=== PATIENT | male | born 1995 | race Caucasian/White ===

== ENCOUNTER 2021-08-16 20:49 | Emergency (ER) | payer OTHER ==
[2021-08-16 21:20] LABS: BASOPHILS # (AUTO) 0.1 10^3/uL (0.0-0.1); BASOPHILS % (AUTO) 0.4 %; EOSINOPHILS # (AUTO) 0.2 10^3/uL (0.0-0.7); EOSINOPHILS % (AUTO) 1.6 %; HCT - HEMATOCRIT 42.9 % (42.0-52.0); HGB - HEMOGLOBIN 14.4 g/dL (14.0-18.0); LYMPHOCYTES # (AUTO) 2.5 10^3/uL (1.5-3.5); MEAN CORPUSCULAR HEMOGLOBIN 28.7 pg (27.0-31.0); MEAN CORPUSCULAR HGB CONC 33.6 g/dL (32.0-36.0); MEAN CORPUSCULAR VOLUME 85.5 fL (80.0-94.0); MEAN PLATELET VOLUME 9.8 fL (7.4-11.4); NEUTROPHILS # (AUTO) 10.8 10^3/uL (1.5-6.6); NEUTROPHILS % (AUTO) 73.7 %; PLT - PLATELET COUNT 233 10^3/uL (130-450); RED BLOOD COUNT 5.02 10^6/uL (4.70-6.10); RED CELL DISTRIBUTION WIDTH 12.5 % (12.0-15.0); WHITE BLOOD COUNT 14.6 x10^3/uL (4.8-10.8)
[2021-08-16 21:31] LABS: ALBUMIN 4.7 g/dL (3.2-5.5); ALBUMIN/GLOBULIN RATIO 1.3 (1.0-2.2); BILIRUBIN,TOTAL 0.8 mg/dL (0.2-1.0); CALCIUM 9.1 mg/dL (8.5-10.3); CREATININE 1.1 mg/dL (0.6-1.2); POTASSIUM 4.1 mmol/L (3.5-5.0); TOTAL PROTEIN 8.4 g/dL (6.7-8.2)
--- NOTE | 2021-08-16 21:37 | ED Physician Documentation ---
PD HPI ABD PAIN - Stated complaint Stated Complaint: MALE - Chief complaint Chief Complaint: Abd Pain - History obtained from History obtained from: Patient - Additional information Additional information: Previously healthy 26-year-old gentleman who is active duty in the [place] developed low back pain left greater than right while at rest after doing PT today. PT was not more stressful than usual. Subsequently he developed burning urination and orange urine. No fevers or chills. He has some suprapubic pain as well. He has never had a kidney stone or abdominal surgeries. He declines pain medication on initial evaluation. Review of Systems Ten Systems: 10 systems reviewed and negative Constitutional: reports: Reviewed and negative Eyes: reports: Reviewed and negative Ears: reports: Reviewed and negative Nose: reports: Reviewed and negative Throat: reports: Reviewed and negative PD PAST MEDICAL HISTORY - Present Medications Home Medications: Ambulatory Orders Medication Instructions Recorded Confirmed Cefdinir 300 mg PO BID #14 cap 08/16/21 - Allergies Allergies/Adverse Reactions: Allergies Allergy/AdvReac Type Severity Reaction Status Date / Time No Known Drug Allergies Allergy Verified 08/16/21 21:01 PD ED PE NORMAL - Vitals Vital signs reviewed: Yes - General General: Alert and oriented X 3, No acute distress - Cardiac Cardiac: RRR, No murmur - Respiratory Respiratory: No respiratory distress, Clear bilaterally - Abdomen Abdomen: Other (Mild tenderness in the suprapubic area and right lower quadrant. Mild left flank tenderness without right pain tenderness. No surgical signs.) - Back Back: No spinal TTP - Neuro Neuro: Alert and oriented X 3, Normal speech Results - Vitals Vitals: Vital Signs - 24 hr 08/16/21 08/16/21 20:57 23:43 Temperature 37 C Heart Rate 99 83 Respiratory 18 16 Rate Blood Pressure 119/77 112/66 O2 Saturation 98 97 Oxygen O2 Source Room air - Labs Labs: Microbiology 08/16/21 21:30 Urine Culture - Preliminary Urine,Clean Catch CULTURE IN PROGRESS. RESULTS TO FOLLOW. Laboratory Tests 08/16/21 08/16/21 08/16/21 21:14 21:14 21:30 WBC 14.6 H RBC 5.02 Hgb 14.4 Hct 42.9 MCV 85.5 MCH 28.7 MCHC 33.6 RDW 12.5 Plt Count 233 MPV 9.8 Neut # (Auto) 10.8 H Lymph # (Auto) 2.5 [place] # (Auto) 1.0 Eos # (Auto) 0.2 Baso # (Auto) 0.1 Absolute Nucleated RBC 0.00 Nucleated RBC % 0.0 Sodium 138 Potassium 4.1 Chloride 101 Carbon Dioxide 27 Anion Gap 10.0 BUN 10 Creatinine 1.1 Estimated GFR (MDRD) 82 L Glucose 103 H Calcium 9.1 Total Bilirubin 0.8 AST 20 ALT 20 Alkaline Phosphatase 73 Total Protein 8.4 H Albumin 4.7 Globulin 3.7 Albumin/Globulin Ratio 1.3 Urine Color YELLOW Urine Clarity CLOUDY Urine pH 6.0 Ur Specific [place] 1.025 Urine Protein 100 H Urine Glucose (UA) NEGATIVE Urine Ketones NEGATIVE Urine Occult Blood LARGE H Urine Nitrite NEGATIVE Urine Bilirubin NEGATIVE Urine Urobilinogen 0.2 (NORMAL) Ur Leukocyte Esterase LARGE H Urine RBC 11-25 H Urine WBC >25 H Ur Squamous Epith Cells RARE Squamous Urine Bacteria Moderate H Ur Microscopic Review INDICATED Urine Culture Comments INDICATED Departure - Departure Disposition: 01 Home, Self Care Clinical Impression: Cystitis Condition: Stable Instructions: ED UTI Cystitis Male Prescriptions: Cefdinir 300 mg PO BID #14 cap Comments: You were found to have a bladder infection. Your CT scan did not show anything else that was abnormal other than inflammation in the bladder. We have started you on an antibiotic tonight and I will send a prescription for an antibiotic that you should start in the morning to [facility]. Please finish the course of the antibiotic. If you have any worsening symptoms such as increased pain, fever, pain elsewhere please return to the emergency department.Otherwise [place] Discharge Date/Time: 08/17/21 00:11
[2021-08-16 21:44] LABS: BILIRUBIN,URINE NEGATIVE (NEGATIVE); GLUCOSE, URINE (UA) NEGATIVE (NEGATIVE); KETONES,URINE (UA) NEGATIVE (NEGATIVE); LEUKOCYTE ESTERASE, URINE LARGE (NEGATIVE); NITRITE,URINE NEGATIVE (NEGATIVE); OCCULT BLOOD,URINE LARGE (NEGATIVE); PROTEIN,URINE 100 mg/dL (NEGATIVE); UROBILINOGEN,URINE 0.2 (NORMAL) E.U./dL (NORMAL)
[2021-08-16 21:49] LABS: CLARITY,URINE CLOUDY (CLEAR)
[2021-08-16 22:01] LABS: SQUAMOUS EPITHELIAL CELL,UR RARE Squamous (<= Few); WBC,URINE >25 /HPF (0-3)
[2021-08-16 22:02] LABS: BACTERIA,URINE Moderate /HPF (None Seen)
--- NOTE | 2021-08-16 23:20 | CT Report ---
PROCEDURE: Abdomen/Pelvis WO INDICATIONS: L flank pain TECHNIQUE: Noncontrast 5 mm thick sections acquired from the diaphragms to the symphysis. 5 mm coronal and sagi ttal reformats were then performed. For radiation dose reduction, the following was used: automated exposure control, adjustment of mA and/or kV according to patient size. COMPARISON: None. FINDINGS: Image quality: Evaluation limited in the absence of intravenous contrast.. Lung bases: There is mild dependant atelectasis. Heart: Heart is normal in size. URINARY: Right Kidney and Ureter: No stones or hydronephrosis. No hydroureter. Left Kidney and Ureter: No stones or hydronephrosis. No hydroureter. Bladder:The urinary bladder is partially distended. There is mild perivesicular fat stranding. No st ones. ABDOMEN: Liver: Noncontrast evaluation of the liver demonstrates no discrete mass. Gallbladder: Within normal limits without calcified gallstones. Biliary ducts: No biliary ductal dilatation. Pancreas: Unremarkable. Spleen: Normal in size. Adrenal Glands: No adrenal nodules. Stomach and Bowel: Stomach, small bowel loops, and colon are normal in caliber and wall thickness. N o evidence of appendicitis. There is colonic diverticulosis without acute diverticulitis. Peritoneum: No abnormal intraperitoneal fluid. No free air. Ventral Wall: No hernia. Abdominal Nodes: No retroperitoneal or mesenteric adenopathy by size criteria. Vessels: Aorta and inferior vena cava are normal in size. PELVIS: Pelvic Organs: Unremarkable. Pelvic Nodes: No enlarged lymph nodes. Miscellaneous: No inguinal hernias identified. Bones: Visualized osseous structures demonstrate no suspicious focal lesions. IMPRESSION: 1. No evidence of nephrolithiasis or obstructive uropathy. 2. Mild fat stranding along the bladder suggestive of a cystitis. Recommend correlation with urinalys is. 3. Colonic diverticulosis without acute diverticulitis. Reviewed by: Aditya Koehler MD on 08/16/2021 11:19 PM PDT Approved by: Aditya Koehler MD on 08/16/2021 11:19 PM PDT Station ID: [id number]
[2021-08-16] MEDS ORDERED: LIDOCAINE 1% 2 ML VIAL MC ONE (23:35)
[2021-08-16] MEDS ORDERED: cefTRIAXone 1 GM VIAL IM STA (23:35)
--- NOTE | 2021-08-16 23:41 | ED Physician Documentation ---
ED Addendum - Addendum Addendum: Patient signed out to me by Dr. Kwan to follow-up on CT scan results. CT scan Findings of cystitis.Urine analysis also with findings of infection. Will give patient dose of Rocephin IM tonight and prescription for p.o. antibiotics. I did review these findings with the patient. He denies concern for sexually transmitted infections and denies penile discharge or testicular pain.He is nontoxic in appearance, does not appear septic. Departure - Departure Disposition: 01 Home, Self Care Clinical Impression: Cystitis Condition: Stable Instructions: ED UTI Cystitis Male Prescriptions: Cefdinir 300 mg PO BID #14 cap Comments: You were found to have a bladder infection. Your CT scan did not show anything else that was abnormal other than inflammation in the bladder. We have started you on an antibiotic tonight and I will send a prescription for an antibiotic that you should start in the morning to [facility] in [place]. Please finish the course of the antibiotic. If you have any worsening symptoms such as increased pain, fever, pain elsewhere please return to the emergency department.Otherwise [place] Discharge Date/Time: 08/17/21 00:11
[2021-08-16 23:43] VITALS: BP 112/66
[2021-08-17 23:56] LABS: CHLAMYDIA TRACHOMATIS DNA NEGATIVE (NEGATIVE); NEISSERIA GONORRHOEAE DNA NEGATIVE (NEGATIVE)
== END 2021-08-17 00:11 | disposition home or self-care (01) ==
LOC: ED 20:49
DX: N30.90 Cystitis, unspecified without hematuria (principal)
CPT/HCPCS: 36415; 80053; 81001; 81003; 85025; 87086; 87491; 87591; 87661; 96372; 99284

== ENCOUNTER 2021-08-28 23:06 | Emergency (ER) | payer OTHER ==
--- NOTE | 2021-08-29 01:24 | ED Physician Documentation ---
PD HPI HEADACHE - Stated complaint Stated Complaint: HEADACHE/NAUSEA - Chief complaint Chief Complaint: General - History obtained from History obtained from: Patient - History of Present Illness Timing - onset: Enter time (12:00 (noon)), Today Timing - onset during: Rest Timing - details: Gradual onset Location: Front, Right, Left Quality: Aching Associated symptoms: Nausea, Vomiting. No: Fever, Stiff neck, Weakness, Numbness, Syncope, Seizure, Eye pain, Vision changes Improved by: Dark room Worsened by: Light Contributing factors: No: Anticoagulated, Trauma Similar symptoms before: Has not had sx before Recently seen: Not recently seen - Additional information Additional information: gradual onset headache at approximately noon today, bifrontal and retroorbital. The headache gradually progressed in severity, becoming associated with nausea and vomiting. Mild photophobia. Has not had similar headaches in the past. Review of Systems Constitutional: reports: Fever Eyes: reports: Photophobia Cardiac: reports: Reviewed and negative Respiratory: reports: Reviewed and negative GI: reports: Nausea, Vomiting. denies: Abdominal Pain Neurologic: reports: Headache. denies: Focal weakness, Numbness, Confused, Altered mental status, Head injury PD PAST MEDICAL HISTORY - Past Medical History Past Medical History: No - Present Medications Home Medications: Ambulatory Orders Medication Instructions Recorded Confirmed Cefdinir 300 mg PO BID #14 cap 08/16/21 HYDROcod/ACETAM 5/325 [[place] 5/325] 1 - 2 tablet PO Q6H PRN #14 tablet 08/29/21 Ondansetron Odt [Zofran] 4 mg TL Q6H PRN #14 tablet 08/29/21 SUMAtriptan [Imitrex] 25 mg PO ONCE PRN #20 tablet 08/29/21 - Allergies Allergies/Adverse Reactions: Allergies Allergy/AdvReac Type Severity Reaction Status Date / Time No Known Drug Allergies Allergy Verified 08/28/21 23:14 - Living Situation Living Arrangement: reports: At home PD ED PE NORMAL - Vitals Vital signs reviewed: Yes - General General: Alert and oriented X 3, No acute distress, Well developed/nourished - HEENT HEENT: PERRL, EOMI, Moist mucous membranes - Neck Neck: Supple, no meningeal sign - Cardiac Cardiac: RRR, No murmur - Respiratory Respiratory: No respiratory distress, Clear bilaterally - Neuro Neuro: Alert and oriented X 3, sand conditioner machine 2-12 intact, No motor deficit, No sensory deficit, Normal speech Eye Opening: Spontaneous Motor: Obeys Commands Verbal: Oriented GCS Score: 15 Results - Vitals Vitals: Oxygen O2 Source Room air - Rads (name of study) CTH Radiology: Prelim report reviewed, See rad report PD MEDICAL DECISION MAKING - ED course Complexity details: reviewed results, re-evaluated patient, considered different ial, d/w patient ED course: c/o bifrontal and retroorbital headache since noon today. Has not had headaches like this before today and thus CTH performed; no concerning findings (no mass, no ICH).Doubt meningitis (no fever, no meningismus), does not describe nasal congestion to suggest sinusitis/ sinus headache. the photophobia would be consistent with migraine headache, although would not make this diagnosis based on first episode. He is given IM toradol without improvement. He is planning on driving home. He is then given 6mg SQ imitrex and take-home vicodin; I explained that the imitrex often helps with migraine headache and that if he experiences significant improvement with this medication, it would increase suspicion of this diagnosis. If he does not improve, he has the vicodin to take at home. Prescriptions for both medications are electronically submitted to his pharmacy of choice. I am prescribing a short course of short-acting opioid pain medication for this patient. I have reviewed the patients [employer] SHIFT and no concerning findings were noted. I have discussed that the opioids are for short term therapy only, and will not be refilled from the ED Departure - Departure Disposition: 01 Home, Self Care Clinical Impression: Headache Qualifiers: Headache type: unspecified Headache chronicity pattern: acute headache Intractability: not intractable Qualified Code(s): R51.9 - Headache, unspecified Condition: Good Instructions: ED Cephalgia Unspecified Follow-Up: WAYNE SOMERS MD [Primary Care Provider] - Prescriptions: SUMAtriptan [Imitrex] 25 mg PO ONCE PRN #20 tablet PRN Reason: Headache HYDROcod/ACETAM 5/325 [[place] 5/325] 1 - 2 tablet PO Q6H PRN #14 tablet PRN Reason: Pain Ondansetron Odt [Zofran] 4 mg TL Q6H PRN #14 tablet PRN Reason: Nausea / Vomiting Comments: The CT scan did not have any concerning findings. The cause of your headaches is not apparent at this time. As we discussed, migraine headache is a possible cause, but typically this is diagnosed after a recurrent pattern of headaches that are consistent with migraine headaches. You were given a dose of imitrex in the emergency department, which is often effective for migraine headaches. If this does not work within one hour, you can take the vicodin (hydrocodone/acetaminophen) provided when you were discharged. Prescriptions for the anti-nausea medication (ondansetron), imitrex, and vicodin have all been submitted to the [facility] pharmacy in [place]. If the imitrex alleviates your headache, you should use that as prescribed. If the imitrex was not effective, you will have the vicodin for short-term use for symptom control. I am prescribing a short course of narcotic pain medication for you. These are potentially dangerous and addictive medications that should be used carefully. These medications may constipate you. Take an hnce-tbs-cimidcn stool softener (docusate) twice daily with plenty of water while taking these medications. If you go 24 hours without a bowel movement, take [id number] miralax, per package instructions. Do not drink or drive while taking these medications. If you received narcotic or sedating medications while in the emergency department, do not drive for 24 hours. Store this medication in a safe, secure place and out of reach of children. It is a violation of federal law to give or sell this medication to another person or to use in a manner other than prescribed. The ED will not refill narcotic prescriptions, including prescriptions lost or stolen. To dispose of unwanted medications: 1. [facility] at [address] in [place] has a medication drop box. They accept prescription medications (in pill form) Monday through Monday 9:00 a.m. to 5:00 p.m. 2. [facility] [employer] accepts prescription medications (in pill form only) for disposal year round. Call for more information. 3. Contact the [facility] for the next [facility] sponsored prescription drug collection event. , [phone], or [phone]; Discharge Date/Time: 08/29/21 04:35
[2021-08-29] MEDS ORDERED: ONDANSETRON ODT 4 MG TABLET TL STA (01:51)
[2021-08-29] MEDS ORDERED: KETOROLAC 60 MG/2 ML VIAL IM STA (01:51)
[2021-08-29 03:25] VITALS: BP 117/75
[2021-08-29] MEDS ORDERED: SUMAtriptan 6 MG/0.5 ML VIAL SUBQ STA (03:47)
[2021-08-29] MEDS ORDERED: HYDROcod/ACET 5/325 Prepack 4 PO STA (03:47)
--- NOTE | 2021-08-29 08:45 | CT Report ---
PROCEDURE: HEAD WO INDICATIONS: headache, visual changes TECHNIQUE: Noncontrast 4.5 mm thick angled axial sections acquired from the foramen magnum to the vertex. For r adiation dose reduction, the following was used: automated exposure control, adjustment of mA and/or kV according to patient size. COMPARISON: None. FINDINGS: Image quality: Excellent. CSF spaces: Basal cisterns are patent. No extra-axial fluid collections. Ventricles are normal in size and shape. Brain: No midline shift. No intracranial masses or hemorrhage. Gupta-white matter interface is norm al. Skull and face: Calvarium and visualized facial bones are intact, without suspicious lesions. Sinuses: Visualized sinuses and mastoids are clear. IMPRESSION: 1. No CT evidence of acute intracranial process. 2. Final interpretation is concordant with preliminary report. Reviewed by: Lin Ayala MD on 08/29/2021 8:43 AM PDT Approved by: Lin Ayala MD on 08/29/2021 8:43 AM PDT Station ID: [id number]
== END 2021-08-29 04:35 | disposition home or self-care (01) ==
LOC: ED 23:06
DX: R51.9 Headache, unspecified (principal)
CPT/HCPCS: 70450; 96372; 99284; Q0162